=== PATIENT | female | born 1945 | race Caucasian/White ===

== ENCOUNTER 2024-03-09 06:55 | Day surgery (SDC) | payer MEDICARE ==
[~2024-03-09] VITALS: Ht 156.2 cm; Wt 54.9 kg
[~2024-03-09 06:55] MED LIST: CALCIUM600 M1 PO; ESTRADIOL VA; HYDROCHLOROTH12.5 M1 PO; LISINOPRIL20 MG PO; VITAMIN D 50 MCG; ZINC50 M1 PO
[2024-03-09] MEDS ORDERED: LACTATED RINGER'S 1,000 ML IV ONE (07:01)
[2024-03-09] MEDS ORDERED: STERILE WATER FOR IRRIGATION 1,000 ML BTL IR ONE (07:16)
[2024-03-09] MEDS ORDERED: GLYCOPYRROLATE 0.2 MG/ML IV ONE (08:48)
[2024-03-09] MEDS ORDERED: LIDOCAINE HCL 2% 2ML SDV IV ONE (08:48)
[2024-03-09] MEDS ORDERED: PROPOFOL 200 MG/20 ML VIAL IV ONE (08:48)
[2024-03-09 09:16] VITALS: BP 156/69
== END 2024-03-09 09:38 | disposition home or self-care (01) ==
LOC: ENDO 06:55
PROVIDERS: ATTEND Surgery
PROC: 0DJD8ZZ Inspection of Lower Intestinal Tract, Via Natural or Artificial Opening Endoscopic (ICD-10-PCS; principal; 2024-03-09)
DX: Z12.11 Encounter for screening for malignant neoplasm of colon (principal); I10 Essential (primary) hypertension
CPT/HCPCS: J1596